=== PATIENT | male | born 1945 | race Caucasian/White ===

== ENCOUNTER 2024-01-03 20:58 | Emergency (ER) | payer OTHER ==
[2024-01-03 21:15] VITALS: BMI 25.0
[2024-01-03 22:42] LABS: BASO % 1.1 % (0-2.0); EOS % 3.6 % (0-4.5); HEMATOCRIT 42.2 % (35.4-49); HEMOGLOBIN 14.8 GM/dL (11.7-16.9); LYMPH % 27.5 % (8-40); MCH 30.9 pg (25.7-33.7); MEAN CELL VOLUME 88.3 fl (80-96); MEAN PLT VOLUME 7.9 fl (7.5-11.1); MONO % 8.3 % (3.8-10.2); NEUT % 59.5 % (42.8-82.8); PLATELET COUNT 209 10^3/uL (134-434); RBC 4.78 M/mm3 (4.00-5.60); RDW 13.9 % (11.9-15.9); WHITE BLOOD COUNT 6.6 K/mm3 (4.0-10.0)
[2024-01-03 22:49] LABS: INR 0.99 (0.83-1.09); PROTHROMBIN TIME (PATIENT) 11.4 SEC (9.7-13.0)
[2024-01-03 22:52] LABS: ACTIVATED PTT 29.3 SECONDS (25.2-36.5)
[2024-01-03 23:20] LABS: POTASSIUM 4.1 mmol/L (3.5-5.1)
[2024-01-03 23:21] LABS: ALBUMIN 3.9 g/dl (3.4-5.0); BLOOD UREA NITROGEN 16.5 mg/dL (7-18); CALCIUM 9.8 mg/dL (8.5-10.1)
[2024-01-03 23:25] LABS: CREATININE 0.8 mg/dL (0.55-1.3)
[2024-01-03 23:27] LABS: BILIRUBIN,TOTAL 0.7 mg/dL (0.2-1); TOT PROT 7.2 g/dl (6.4-8.2)
[2024-01-04 02:37] VITALS: TEMP 97.5
[2024-01-04 02:59] VITALS: BP 107/57; PULSE 68; RESP 15
== END 2024-01-04 02:59 | disposition home or self-care (01) ==
LOC: JER 20:58
DX: K40.91 Unilateral inguinal hernia, without obstruction or gangrene, recurrent (principal); R10.2 Pelvic and perineal pain
CPT/HCPCS: 36415; 74177-TC; 80053; 83605; 85025; 85610; 85730; 86850; 86900; 86901; 93005; 93010; 99285-25